=== PATIENT | female | born 1945 | race Caucasian/White ===

== ENCOUNTER 2023-02-24 09:50 | Outpatient (AMB) | payer MEDICARE, SELFPAY ==
--- NOTE | 2023-02-24 10:18 | MHC.OFFVIS ---
Intake Vital Signs 02/24/23 10:32 Height 5 ft 2.75 in Weight 148 lb BMI 26.4 BP 130/68 Blood Pressure Location Rt brachial Position Sitting Respiration 16 Pulse 81 Pulse Source Pulse Oximeter Pulse Oximetry (%) 94 Oxygen Delivery Method Room Air Intake Visit Reasons: Dorsalgia, unspecified Intake Note: patient comes in for initial visit was referred by pcp. Allergies Penicillins Adverse Reaction (Mild, Verified 02/24/23 10:23) Hives [facility] HPI Comments History of Present Illness Details Lorrie is very pleasant 77 years old female who presents in my office with complains on pain in the bilateral buttocks as well as pain radiation into bilateral groins. She reported that this condition started 2 years ago with severe pain in the right shoulder. Eventually her pain went widespread and now she is complaining on pain in the back and pain the right scapula. She reports that she is suffering from arthritis for 40 years. She consider her pain as a flare-up of the arthritis. She reports that she cannot sleep normally because of her pain cannot do activities of daily living she can take care of herself and she can not function normally. She is retired individual. She reports that movements aggravate her pain. The pain is most severe in the morning. She reports pain in terms of tissue damage is stabbing, lancinating, pinching, cramping, crushing, tugging, pulling, ranging sensation. She tried therapeutic walks to help her pain recommendations of prior primary care physician. She tried gabapentin which did not help her pain. She is negative about injections. She is visiting office of physical therapy Karthikeyan Estevez. She never had any images of the lumbar spine or joints. Her past medical history significant for fatigue, dizziness, arthritis. 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 She probably has degree of osteoporosis. Her past surgical history significant for rotator cuff surgery of the right and left shoulders in 2008 in 2010. She denies smoking cigarettes denies drinking alcohol denies drinking caffeinated beverages denies recreational drugs. Review of Systems Const Reports as per HPI ENT Reports Normal hearing present Card Reports no additional complaints Resp Reports no additional complaints GI Reports no additional complaints Reports no additional complaints Musc Reports as per HPI Neuro Reports no additional complaints, Reports Normal hearing present, Denies Abnormal speech present and Denies Sensory deficit (Neuro) Physical Exam Vital Signs: Last Vital Signs Pulse 81 09/18/23 10:32 Resp 16 02/24/23 10:32 BP 130/68 02/24/23 10:32 Pulse Ox 94 02/24/23 10:32 Oxygen Delivery Method Room Air 02/24/23 10:32 BMI result Body Mass Index 26.4 Const General: no acute distress, well developed, alert, awake and Physically active Orientation/consciousness: patient oriented x3 Eyes General: appearance normal, both eyes and all related structures Pupils: Equal, round and reactive pupils present EOM: EOMs intact bilaterally Neck Neck: Yes full ROM Chest Chest palpation & inspection: normal inspection of the chest Resp Effort & Inspection: normal respiratory effort, able to speak in complete sentences, normal respiratory pattern, no audible wheezes and no cough Cardio Jugular venous distension: no JVD GI Inspection: Yes normal to inspection Back/Spine/Pelvis Other: Negative Jose Miguel test on the right and positive Jose Miguel test on the left make me think about sacroiliitis on the left. However she also has groin discomfort with performance of the Jose Miguel test on the left. That might be evident of the hip arthritis. No tenderness on palpation in paraspinal spinal region of the lumbar spine. No pain aggravated by a spinal movements. Neuro General: patient oriented x3 and gait normal Cranial nerves: Yes CN's II-XII intact bilaterally, Yes Equal, round and reactive pupils present, Yes Normal hearing present and Yes Ability to bilaterally elevate shoulders present Speech: No Abnormal speech present Gait exam (Neuro): Normal gait present Motor exam (neuro): 5/5 motor strength present throughout Sensory Exam: No Sensory deficit (Neuro) Extrem General: No pedal edema Psych Speech and movement: Normal speech and movement present Affect: normal affect Attitude: cooperative Thought process: Normal thought process present Thought content: Normal thought content present Insight: Good insight present (Psych) Judgement: Good judgement present (Psych) Assessment & Plan Assessment & Plan (1) Rheumatoid arthritis: Code(s): M06.9 - Rheumatoid arthritis, unspecified (2) Gout, arthritis: Code(s): M10.9 - Gout, unspecified Plan This patient's pain is really mild today she reports pain today only 3/10. My impression is that her pain may be coming from osteoarthritis. I offered her x-ray of the hips and following by that diagnostic intra-articular hip injections however patient adamantly refused. She wants to prevent future flares up. I recommended her to be referred to a continuous crusher operator. I will make such in referral. Orders: Referrals Rheumatology Referral M06.9 - Rheumatoid arthritis, unspecified, M10.9 - Gout, unspecified Coding Level of Care Code New Pt Level 3 (47648) Diagnoses Rheumatoid arthritis M06.9 Gout, arthritis M10.9
[2023-02-24 10:32] VITALS: BP 130/68; PULSE 81; RESP 16; O2SAT 94; BMI 26.4
== END 2023-02-24 10:50 | disposition home or self-care (01) ==
PROVIDERS: PCP Family Medicine; Visit Provider Anesthesiology
DX: M06.9 Rheumatoid arthritis, unspecified (principal); M10.9 Gout, unspecified
CPT/HCPCS: 99203

== ENCOUNTER → 2023-02-24 09:50 | Outpatient (BNVA) | payer MEDICARE, SELFPAY | PROVIDERS: PCP Family Medicine; Visit Provider Anesthesiology ==

== ENCOUNTER 2023-05-22 10:31 | Outpatient (REF) | payer MEDICARE, SELFPAY ==
--- NOTE | ~2023-05-22 | XR_ITS ---
EXAMINATION: XR SACROILIAC JOINTS CLINICAL INFORMATION: Low back pain, unspecified COMPARISON: Same-day lumbar spine TECHNIQUE: 3 views of the sacroiliac joints FINDINGS: The bones are diffusely demineralized. No fracture. Alignment is anatomic. Sacroiliac joint spaces are well-maintained without erosions or surrounding sclerosis. Degenerative changes are seen in the lower lumbar spine. Calcification in the center the pelvis likely represents a calcified fibroid. XR/XR sacroiliac joint min 3V IMPRESSION: No bony abnormality of the sacroiliac joints.
--- NOTE | ~2023-05-22 | XR_ITS ---
EXAMINATION: XR LUMBOSACRAL SPINE WITH OBLIQUES CLINICAL INFORMATION: Low back pain COMPARISON: None available. TECHNIQUE: AP, both oblique, and lateral views of the lumbar spine. Lateral view of the lumbosacral junction. FINDINGS: Vertebral bodies are normally aligned. There is slight loss of vertebral body height of the T12-L1 L3-L4 likely reflecting compression fractures more likely chronic than acute. Multilevel degenerative disc changes manifest by endplate osteophytes throughout. There is some ossification of the anterior longitudinal ligament throughout the thoracolumbar junction L1-L2 and L3-L4 and L5-S1 levels. Facets unremarkable. The partially visualized pelvis including sacroiliac joints are normal. There is arterial calcification of the abdominal aorta. XR/XR lumbar spine 4V min IMPRESSION: 1. Multilevel degenerative changes of the lumbar spine. 2. Multiple compression fractures likely old 3. Calcification of the anterior longitudinal ligament which can be seen with DISH. 4. Calcific atherosclerotic disease.
[2023-05-22 12:23] LABS: MANUAL DIFF FLAG NO
[2023-05-22 12:47] LABS: Basophils Percent Auto 0.1 % (0-2); Eosinophils Absolute Auto 0.1 X10*3/uL (0.0-0.4); Eosinophils Percent Auto 1.2 % (0-4); Hematocrit 45.7 % (37.0-47.0); Hemoglobin 15.2 g/dl (12.0-16.0); Imm Gran Abs Auto 0.04 X10*3/uL (0.00-0.03); Imm Gran Pct Auto 0.5 % (0.0-0.4); Lymphocytes Absolute Auto 1.7 X10*3/uL (1.2-4.9); Lymphocytes Percent Auto 23.3 % (20-40); Mean Corpuscular HGB Conc 33.3 g/dl (31.0-35.0); Mean Corpuscular Hemoglobin 29.9 pg (27.0-33.0); Mean Corpuscular Volume 89.8 fL (80.0-98.0); Mean Platelet Volume 9.7 fL (9.4-12.3); Monocytes Absolute Auto 0.7 X10*3/uL (0.1-1.2); Neutrophils Absolute Auto 4.9 x10*3/uL (2.0-8.3); Neutrophils Percent Auto 65.9 % (45-73); Platelet Count 265 X10*3/uL (160-400); Red Blood Count 5.09 X10*6/uL (4.20-5.50); Red Cell Distribution Width 13.5 % (11.0-16.0); White Blood Count 7.4 X10*3/uL (4.8-10.8)
[2023-05-22 13:13] LABS: Alanine Aminotransferase 19 U/L (0-31); Albumin Level 4.5 g/dL (3.5-5.0); Alkaline Phosphatase 75 U/L (39-117); Anion Gap 15 (12-20); Aspartate Amino Transferase 25 U/L (5-31); Bilirubin Total 0.6 mg/dL (0.0-1.0); Blood Urea Nitrogen 14 mg/dL (9-16); Calcium 10.1 mg/dL (8.4-10.2); Carbon Dioxide 28 mmol/L (22-29); Chloride 101 mmol/L (96-108); Estimated Glomerular Filt Rate > 60; Glucose Random 89 mg/dL (60-115); Potassium 4.1 mmol/L (3.3-5.1); Sodium 140 mmol/L (135-145); Total Protein 7.6 g/dL (6.5-8.0)
[2023-05-22 13:28] LABS: Rheumatoid Factor < 13.0 IU/mL (<15.0)
[2023-05-22 13:44] LABS: Erythrocyte Sedimentation Rate 7 MM/HR (0-20)
[2023-05-23 07:33] LABS: HBS Num1 0.65 mIU/mL (0-7.99); HBc Num1 0.09 S/CO (0.00-0.79); HBsAGNum1 0.27 S/CO (0.00-0.99); Hepatitis A Antibody IgM 0.11 Index (0-0.79); Hepatitis B Core Antibody Nonreactive (Nonreactive); Hepatitis B Surface Antigen Negative (Negative); ~HepC Num1 0.08 S/CO (0.00-0.79); ~Hepatitis A Antibody IgM Nonreactive (Nonreactive); ~Hepatitis B Surface Antibody NONREACTIVE (Nonreactive); ~Hepatitis C Antibody Nonreactive (Nonreactive)
[2023-05-23 14:13] LABS: Cyclic Citrullinated Peptide <16 UNITS
[2023-05-23 21:29] LABS: Prot Elec - Albumin 4.4 g/dL (3.8-4.8); Prot Elec - Alpha1 0.4 g/dL (0.2-0.3); Prot Elec - Alpha2 0.8 g/dL (0.5-0.9); Prot Elec - Beta 1 0.5 g/dL (0.4-0.6); Prot Elec - Beta 2 0.4 g/dL (0.2-0.5); Prot Elec - Gamma 0.8 g/dL (0.8-1.7); Prot Elec - Total Protein 7.2 g/dL (6.1-8.1)
[2023-05-24 22:08] LABS: TS Negative Control Passed; TS Panel A 2; TS Panel B 1; TS Positive Control Passed; TSpotTB Negative (Negative)
[2023-05-25 18:54] LABS: HLA B27 Negative (Negative)
[2023-05-27 14:48] LABS: IgA 158 mg/dL (70-320); IgG 895 mg/dL (600-1540); IgM 51 mg/dL (50-300)
== END 2023-05-22 10:32 | disposition home or self-care (01) ==
LOC: HO.LAB 10:31
PROVIDERS: PCP Family Medicine; Visit Provider Student in an Organized Health Care Education/Training Program
DX: Z11.7 Encounter for testing for latent tuberculosis infection (principal); Z11.59 Encounter for screening for other viral diseases; K50.10 Crohn's disease of large intestine without complications; M45.9 Ankylosing spondylitis of unspecified sites in spine; M54.41 Lumbago with sciatica, right side; G89.29 Other chronic pain; Z72.89 Other problems related to lifestyle
CPT/HCPCS: 72110; 72202; 80053; 82784; 84165; 85025; 85652; 86021; 86036; 86140; 86200; 86334; 86431; 86481; 86671; 86704; 86706; 86709; 86803; 86812; 87340; 99202

== ENCOUNTER 2023-05-22 10:31 | Outpatient (AMB) | payer MEDICARE, SELFPAY ==
[2023-05-22 10:40] VITALS: BP 142/90; PULSE 80; TEMP 36.1; O2SAT 97
--- NOTE | 2023-05-22 10:40 | MHC.OFFVIS ---
Intake Vital Signs 05/22/23 10:40 BP 142/90 H Blood Pressure Location Rt brachial Position Sitting Pulse 80 Pulse Source Pulse Oximeter Temp 97 F Temp Source Skin Pulse Oximetry (%) 97 Oxygen Delivery Method Room Air Intake Visit Reasons: RA Intake Note: New patient presents today for RA. Referred to us by pain management. 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 c/o [place] upper buttoks pain radiating down to upper thighs since July. Atmospheric Drier Tender Required: No Accompanied by: Self / Same As Patient Allergies Penicillins Adverse Reaction (Mild, Verified 05/22/23 10:45) Hives Medication List - Last Reconciled 05/22/23 by Radha Lynch MD azelastine intranasal Bifidobacterium infantis (Align) 4 mg PO BEDTIME cholecalciferol (vitamin D3) 50 mcg PO DAILY melatonin 1 mg PO BEDTIME PRN multivitamin 1 tab PO DAILY simvastatin 40 mg PO BEDTIME trazodone mg PO HPI HPI Comments History of Present Illness Details This is a 78-year-old female who presents for evaluation low back pain. Patient stated that she has had this condition for a few years, but in July of 2022 she had a flare-up of severe low back pain that alternates right and left and intermittently radiates to her buttocks and upper thigh posteriorly. She could not move for a few days. She states that she has morning stiffness lasting 1 hour improved with stretching and using her elliptical. She denies any other swollen or painful joints. She denies any bowel symptoms. Denies any history suggestive of uveitis. She states that her daughter has Crohn's colitis. 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 She has been in remission since 1990. She also states that she has history of osteoporosis and received Fosamax for a few years. Mentions that she has had bilateral rotator cuff repair surgery about a decade ago. She denied any trauma or injury to the shoulders. She denies any fevers or weight loss. [facility] Medical History Osteoporosis Spinal stenosis Pemphigus Hyperlipidemia, unspecified Surgical History Hx of repair of rotator cuff Family History Mother Age related osteoporosis Arthritis Father Diabetes Daughter Acute Crohn's disease Social History Alcohol intake: never Patient Tobacco Use Status: Never used Tobacco Current occupational status: retired Female Reproductive History Menstrual Total pregnancies: 2 Review of Systems Const Reports fatigue, Reports weight gain and Denies weight loss Eyes Reports dry eyes Resp Reports cough Musc Reports back pain, Reports arthralgias and Reports radiating pain into limb Skin/Breast Denies rash Endo Reports fatigue Physical Exam Vital Signs: Last Vital Signs Temp 97 F 05/22/23 10:40 Pulse 80 05/22/23 10:40 BP 142/90 H 05/22/23 10:40 Pulse Ox 97 05/22/23 10:40 Oxygen Delivery Method Room Air 05/22/23 10:40 Const General: cooperative, healthy appearing and comfortable Orientation/consciousness: patient oriented x3 Limitations: no limitations HEENT Head: Yes normocephalic and Yes atraumatic Mouth: moist mucous membranes Resp Effort & Inspection: normal respiratory effort and able to speak in complete sentences Auscultation: clear to auscultation bilaterally Cardio Rate: regular rate GI Inspection: No distended Palpation (GI): Soft to palpation and nontender Skin General skin exam: no rashes or lesions noted Neuro General: patient oriented x3 Extrem Other: Osteoarthritic changes of both hands with no active synovitis No nail pitting Normal nailfold capillaroscopy Normal range of motion of hands, wrists, elbows, shoulders without pain Normal range of motion of her neck without pain Negative straight leg raise test bilaterally Negative Fabere test bilaterally Normal range of motion of both knees with no pain Bryan test 10-12 cm Results Reviewed Results Reviewed: Labs 03/2023? ESR 6 STEVEN by IFA negative Assessment & Plan Assessment & Plan (1) Low back pain, unspecified: Code(s): M54.50 - Low back pain, unspecified Qualifiers: Chronicity: chronic Back pain laterality: bilateral Sciatica presence: with sciatica Sciatica laterality: bilateral sciatica Qualified Code(s): M54.42 - Lumbago with sciatica, left side; M54.41 - Lumbago with sciatica, right side; G89.29 - Other chronic pain Plan: This is a 78-year-old female who presents for evaluation of bilateral lower back pain with intermittent radiculopathy symptoms. Symptoms more severe in the morning associated with 1 hour morning stiffness. She has a daughter with Crohn's colitis. Patient has some features of inflammatory back pain. Will order comprehensive serology to screen for underlying autoimmune rheumatic disease. Check L-spine and SI joint x-rays, to evaluate for sacroiliitis. If x-rays are nondiagnostic, I will order bilateral SI joint MRI to evaluate for sacroiliitis. Patient has no metal hardware. Plan I spent 48 minutes reviewing patient's chart, evaluating patient, ordering diagnostic workup, counseling patient and documenting in the chart Orders: Orders XR sacroiliac joint min 3V Today M54.50 - Low back pain, unspecified Complete Blood Count Auto Diff Today M25.50 - Pain in unspecified joint C Reactive Protein Today M25.50 - Pain in unspecified joint Protein Electrophoresis, Serum Today M25.50 - Pain in unspecified joint Immunofixation Pnl, Serum Today M25.50 - Pain in unspecified joint T Spot TB Today Z11.7 - Encounter for testing for latent tuberculosis infection Rheumatoid Factor Today M25.50 - Pain in unspecified joint XR lumbar spine 4V min Today M54.50 - Low back pain, unspecified Comprehensive Met. Panel Today M25.50 - Pain in unspecified joint Erythrocyte Sedimentation Rate Today M25.50 - Pain in unspecified joint Hepatitis A,B,C Profile Today Z11.59 - Encounter for screening for other viral diseases Cyclic Citrullinated Peptide Today M25.50 - Pain in unspecified joint HLA B27 Today M45.9 - Ankylosing spondylitis of unspecified sites in spine Other Ref Test - Misc Today K50.10 - Crohn's disease of large intestine without complications Coding Level of Care Code New Pt Level 4 (96289) Diagnoses Chronic bilateral low back pain with bilateral sciatica M54.42; M54.41; G89.29 Chronicity: chronic Back pain laterality: bilateral Sciatica presence: with sciatica Sciatica laterality: bilateral sciatica
== END 2023-05-22 11:35 | disposition home or self-care (01) ==
LOC: HO.RHE 10:31
PROVIDERS: PCP Family Medicine; Visit Provider Student in an Organized Health Care Education/Training Program
DX: M54.42 Lumbago with sciatica, left side (principal); M54.41 Lumbago with sciatica, right side; G89.29 Other chronic pain
CPT/HCPCS: 99204

== ENCOUNTER 2023-07-14 10:15 | Outpatient (REF) | payer MEDICARE, SELFPAY ==
--- NOTE | ~2023-07-14 | MR_ITS ---
EXAMINATION: MRI SACROILIAC JOINTS WITHOUT CONTRAST, BILATERAL CLINICAL INFORMATION: Lower back pain with left-sided sciatica. Morning stiffness. Evaluate for sacroiliitis. COMPARISON: Lumbar spine and sacroiliac joint radiographs dated 05/22/2023. TECHNIQUE: Multisequence MR imaging of the sacroiliac joints was obtained without contrast on a high-field strength scanner. FINDINGS: BONE: Mild bilateral sacroiliac joint space narrowing with small marginal osteophytes. No marrow edema, periarticular erosion, joint effusion, or adjacent inflammatory change to suggest acute sacroiliitis. No osseous bridging across the sacroiliac joints. No acute stress reaction or fracture. No concerning lytic or blastic osseous lesion. No femoral head avascular necrosis. Partially visualized degenerative disc disease and facet arthropathy within the lower lumbar spine with associated Schmorl's nodes. Degree of central canal or neural foraminal stenosis limited on MR examination; however, there does appear to be at least mild bilateral neural femoral stenosis at L3-L4 through L5-S1. MUSCLES/TENDONS: No edema or evidence of acute muscle or tendon injury. No measurable tear. INTRAPELVIC STRUCTURES: Unremarkable. SOFT TISSUES: No soft tissue mass or fluid collection. No mass or mass effect in the region of the neurovascular bundles. MR/MR sacroiliac joint TOBY wo con IMPRESSION: 1. Mild bilateral sacroiliac joint space narrowing with small marginal osteophytes. No marrow edema, particularly erosion, joint effusion, or adjacent fat change to suggest acute sacroiliitis. No osseous bridging across the sacroiliac joints. 2. Partially visualized degenerative disc disease and facet arthropathy within the lower lumbar spine with associated Schmorl's nodes. Degree of central canal or neural foraminal stenosis limited on MR examination; however, there does appear to be at least mild bilateral neural foraminal stenosis at L3-L4 through L5-S1.
== END 2023-07-14 10:16 | disposition home or self-care (01) ==
LOC: HO.MRI 10:15
PROVIDERS: PCP Family Medicine; Visit Provider Student in an Organized Health Care Education/Training Program
DX: M54.42 Lumbago with sciatica, left side (principal); M54.41 Lumbago with sciatica, right side; G89.29 Other chronic pain; M51.36 Other intervertebral disc degeneration, lumbar region; M47.816 Spondylosis without myelopathy or radiculopathy, lumbar region
CPT/HCPCS: 72195

== ENCOUNTER 2023-08-04 12:35 | Outpatient (AMB) | payer MEDICARE, SELFPAY ==
[2023-08-04 12:49] VITALS: BP 144/82; PULSE 88; TEMP 36.6; O2SAT 95; BMI 27.4
--- NOTE | 2023-08-04 12:49 | A.OFFVIS_ITS ---
Intake Vital Signs 08/04/23 12:49 Height 5 ft 2.75 in Weight 153 lb 10.595 oz BMI 27.4 BP 144/82 H Blood Pressure Location Rt brachial Position Sitting Pulse 88 Pulse Source Pulse Oximeter Temp 97.9 F Temp Source Skin Pulse Oximetry (%) 95 Oxygen Delivery Method Room Air Intake Visit Reasons: Sacroilitis Intake Note: Patient last seen 05/22/23 presents today for follow up and test results. Doughnut Icer Machine Required: No Accompanied by: Self / Same As Patient Allergies Penicillins Adverse Reaction (Mild, Verified 08/04/23 12:51) Hives Medication List - Last Reconciled 08/04/23 by Radha Lynch MD azelastine intranasal Bifidobacterium infantis (Align) 4 mg PO BEDTIME cholecalciferol (vitamin D3) 50 mcg PO DAILY melatonin 1 mg PO BEDTIME PRN multivitamin 1 tab PO DAILY simvastatin 40 mg PO BEDTIME trazodone mg PO HPI HPI Comments History of Present Illness Details Patient returns for follow-up after completion of her diagnostic workup. She continues to be about the same. She states that she gets back pain with little activity. She takes Tylenol Arthritis once a day. She uses Salonpas patches. She stated that physical therapy has helped her in the past but she does have a very high co-pay. When she was evaluated by pain management in the past, her pain level was only 3/10 and no significant intervention was suggested at that time Initial history: This is a 78-year-old female who presents for evaluation low back pain. Patient stated that she has had this condition for a few years, but in July of 2022 she had a flare-up of severe low back pain that alternates right and left and intermittently radiates to her buttocks and upper thigh posteriorly. She could not move for a few days. She states that she has morning stiffness lasting 1 hour improved with stretching and using her elliptical. She denies any other swollen or painful joints. She denies any bowel symptoms. Denies any history suggestive of uveitis. She states that her daughter has Crohn's colitis. 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 She has been in remission since 1990. She also states that she has history of osteoporosis and received Fosamax for a few years. Mentions that she has had bilateral rotator cuff repair surgery about a decade ago. She denied any trauma or injury to the shoulders. She denies any fevers or weight loss. [facility] Medical History Osteoporosis Spinal stenosis Pemphigus Hyperlipidemia, unspecified Surgical History Hx of repair of rotator cuff Family History Mother Age related osteoporosis Arthritis Father Diabetes Daughter Acute Crohn's disease Social History Alcohol intake: never Patient Tobacco Use Status: Never used Tobacco Current occupational status: retired Review of Systems [place] Reports back pain, Reports arthralgias and Reports radiating pain into limb Physical Exam Vital Signs: Last Vital Signs Temp 97.9 F 08/04/23 12:49 Pulse 88 08/04/23 12:49 BP 144/82 H 08/04/23 12:49 Pulse Ox 95 08/04/23 12:49 Oxygen Delivery Method Room Air 08/04/23 12:49 BMI result Body Mass Index 27.4 Const General: cooperative, healthy appearing and comfortable Limitations: no limitations HEENT Head: Yes normocephalic and Yes atraumatic Mouth: moist mucous membranes Resp Effort & Inspection: normal respiratory effort and able to speak in complete sentences Extrem Other: Osteoarthritic changes of both hands with no active synovitis No nail pitting Normal nailfold capillaroscopy Normal range of motion of hands, wrists, elbows, shoulders without pain Normal range of motion of her neck without pain Negative straight leg raise test bilaterally Negative Fabere test bilaterally Normal range of motion of both knees with no pain Bryan test 10-12 cm Assessment & Plan Assessment & Plan (1) Low back pain, unspecified: Code(s): M54.50 - Low back pain, unspecified Qualifiers: Chronicity: chronic Back pain laterality: bilateral Sciatica presence: with sciatica Sciatica laterality: bilateral sciatica Qualified Code(s): M54.42 - Lumbago with sciatica, left side; M54.41 - Lumbago with sciatica, right side; G89.29 - Other chronic pain Plan: This is a 78-year-old female who presents for evaluation of bilateral lower back pain with intermittent radiculopathy symptoms. Symptoms more severe in the morning associated with 1 hour morning stiffness. She has a daughter with Crohn's colitis. SI joints MRIs show no signs of sacroiliitis but there are some signs of degenerative arthritis. She does not have any signs of inflammatory arthritis. Blood work and serologies unremarkable. Patient takes 1 Tylenol Arthritis tablet daily. Advised patient to take up to 4 tablets daily. Continue with Salonpas patches. Patient states that she has a very high co-pay for physical therapy. She states that her pain is worse than when she was initially evaluated by Pain Management. I suggested re-evaluation by Pain Management at this point. Plan I spent 18 minutes reviewing patient's chart, evaluating patient, counseling patient and documenting in the chart Coding Level of Care Code Est Pt Level 3 (40495) Diagnoses Chronic bilateral low back pain with bilateral sciatica M54.42; M54.41; G89.29 Chronicity: chronic Back pain laterality: bilateral Sciatica presence: with sciatica Sciatica laterality: bilateral sciatica
== END 2023-08-04 13:11 | disposition home or self-care (01) ==
PROVIDERS: PCP Family Medicine; Visit Provider Student in an Organized Health Care Education/Training Program
DX: M54.42 Lumbago with sciatica, left side (principal); M54.41 Lumbago with sciatica, right side; G89.29 Other chronic pain
CPT/HCPCS: 99213

== ENCOUNTER → 2023-08-04 12:35 | Outpatient (BNVA) | payer MEDICARE, SELFPAY | PROVIDERS: PCP Family Medicine; Visit Provider Student in an Organized Health Care Education/Training Program | DX: M54.42 Lumbago with sciatica, left side (principal); M54.41 Lumbago with sciatica, right side; G89.29 Other chronic pain | CPT/HCPCS: 99212 ==

== ENCOUNTER 2023-08-14 12:53 | Outpatient (AMB) | payer MEDICARE, SELFPAY ==
--- NOTE | 2023-08-14 12:55 | MHC.OFFVIS ---
Intake Vital Signs 08/14/23 15:26 Height 5 ft 2.75 in Weight 153 lb BMI 27.3 BP 134/80 Blood Pressure Location Lt brachial Position Sitting Respiration 14 Pulse 90 Pulse Source Pulse Oximeter Pulse Oximetry (%) 97 Oxygen Delivery Method Room Air Intake Visit Reasons: Follow up to discuss cortisone shot. Intake Note: Patient comes in to discuss options. Reports pain 6/10. Allergies Penicillins Adverse Reaction (Mild, Verified 08/14/23 15:26) Hives HPI HPI Comments History of Present Illness Details Lorrie is back in my office with continuous complains on pain in bilateral buttocks radiating into upper bilateral hips and into bilateral loins. Last time she left my office I was under impression that her pain is coming mostly from the hip joints. Now after brief physical examination I think that most of her pain is from the left sacroiliac joint. I offered her to perform bilateral sacroiliac joint injection diagnostic. After that we can discuss further treatment depending on the results of the diagnostic injection. I will schedule her for this procedure without sedation. Prior: complains on pain in the bilateral buttocks as well as pain radiation into bilateral groins. She reported that this condition started 2 years ago with severe pain in the right shoulder. Eventually her pain went widespread and now she is complaining on pain in the back and pain the right scapula. She reports that she is suffering from arthritis for 40 years. She consider her pain as a flare-up of the arthritis. She reports that she cannot sleep normally because of her pain cannot do activities of daily living she can take care of herself and she can not function normally. She is retired individual. She reports that movements aggravate her pain. The pain is most severe in the morning. She reports pain in terms of tissue damage is stabbing, lancinating, pinching, cramping, crushing, tugging, pulling, ranging sensation. She tried therapeutic walks to help her pain recommendations of prior primary care physician. She tried gabapentin which did not help her pain. She is negative about injections. She is visiting office of physical therapy Karthikeyan Estevez. She never had any images of the lumbar spine or joints. Her past medical history significant for fatigue, dizziness, arthritis. 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 She probably has degree of osteoporosis. Her past surgical history significant for rotator cuff surgery of the right and left shoulders in 2008 in 2010. She denies smoking cigarettes denies drinking alcohol denies drinking caffeinated beverages denies recreational drugs. [facility] Medical History Osteoporosis Spinal stenosis Pemphigus Hyperlipidemia, unspecified Surgical History Hx of repair of rotator cuff Family History Mother Age related osteoporosis Arthritis Father Diabetes Daughter Acute Crohn's disease Social History Alcohol intake: never Patient Tobacco Use Status: Never used Tobacco Current occupational status: retired Review of Systems Const All systems reviewed & are unremarkable except as noted in HPI and below ENT Reports Normal hearing present Neuro Reports Normal hearing present, Denies Abnormal speech present and Denies Sensory deficit (Neuro) Physical Exam Vital Signs: Last Vital Signs Pulse 90 08/14/23 15:26 Resp 14 08/14/23 15:26 BP 134/80 08/14/23 15:26 Pulse Ox 97 08/14/23 15:26 Oxygen Delivery Method Room Air 08/14/23 15:26 BMI result Body Mass Index 27.3 Const General: no acute distress, well developed, alert, awake and Physically active Orientation/consciousness: patient oriented x3 Eyes General: appearance normal, both eyes and all related structures Pupils: Equal, round and reactive pupils present EOM: EOMs intact bilaterally Neck Neck: Yes full ROM Chest Chest palpation & inspection: normal inspection of the chest Resp Effort & Inspection: normal respiratory effort, able to speak in complete sentences, normal respiratory pattern, no audible wheezes and no cough Cardio Jugular venous distension: no JVD GI Inspection: Yes normal to inspection Back/Spine/Pelvis Other: Negative Jose Miguel test on the right and positive Jose Miguel test on the left make me think about sacroiliitis on the left. she denies pain in the groin with lateral rotation of the left or right hip. No tenderness on palpation in paraspinal spinal region of the lumbar spine. No pain aggravated by a spinal movements. Neuro General: patient oriented x3 and gait normal Cranial nerves: Yes CN's II-XII intact bilaterally, Yes Equal, round and reactive pupils present, Yes Normal hearing present and Yes Ability to bilaterally elevate shoulders present Speech: No Abnormal speech present Gait exam (Neuro): Normal gait present Motor exam (neuro): 5/5 motor strength present throughout Sensory Exam: No Sensory deficit (Neuro) Extrem General: No pedal edema Psych Speech and movement: Normal speech and movement present Affect: normal affect Attitude: cooperative Thought process: Normal thought process present Thought content: Normal thought content present Insight: Good insight present (Psych) Judgement: Good judgement present (Psych) Results Reviewed Results Reviewed: MRI of the pelvis demonstrated arthritis of the sacroiliac joints. Assessment & Plan Assessment & Plan (1) Rheumatoid arthritis: Code(s): M06.9 - Rheumatoid arthritis, unspecified (2) Gout, arthritis: Code(s): M10.9 - Gout, unspecified (3) Sacroiliitis: Code(s): M46.1 - Sacroiliitis, not elsewhere classified (4) Sacroiliac joint pain: Code(s): M53.3 - Sacrococcygeal disorders, not elsewhere classified Plan To put to rest the issue of her sacroiliac joint condition I would like to perform diagnostic sacroiliac joint injection bilateral. If she will feel good pain relief from this procedure we can follow-up with more definitive treatment. If not we can try medial branch blocks bilateral also diagnostic. Patient Instructions: I here by testify that I spent 33 minutes in conversation with this patient as well as planning her care and organizing this note. Coding Level of Care Code Est Pt Level 4 (33011) Diagnoses Rheumatoid arthritis M06.9 Gout, arthritis M10.9 Sacroiliitis M46.1 Sacroiliac joint pain M53.3
[2023-08-14 15:26] VITALS: BP 134/80; PULSE 90; RESP 14; O2SAT 97; BMI 27.3
== END 2023-08-14 13:17 | disposition home or self-care (01) ==
PROVIDERS: PCP Family Medicine; Visit Provider Anesthesiology
DX: M06.9 Rheumatoid arthritis, unspecified (principal); M10.9 Gout, unspecified; M46.1 Sacroiliitis, not elsewhere classified; M53.3 Sacrococcygeal disorders, not elsewhere classified
CPT/HCPCS: 99214

== ENCOUNTER → 2023-08-14 12:53 | Outpatient (BNVA) | payer MEDICARE, SELFPAY | PROVIDERS: PCP Family Medicine; Visit Provider Anesthesiology | DX: M06.9 Rheumatoid arthritis, unspecified (principal); M10.9 Gout, unspecified; M46.1 Sacroiliitis, not elsewhere classified; M53.3 Sacrococcygeal disorders, not elsewhere classified | CPT/HCPCS: 99212 ==

== ENCOUNTER 2023-09-23 06:10 | Outpatient (REF) | payer MEDICARE, SELFPAY ==
--- NOTE | ~2023-09-23 | FL_ITS ---
EXAMINATION: XR FLUOROSCOPY WITH IMAGES CLINICAL INFORMATION: Sacrococcygeal disorders, not elsewhere classified. COMPARISON: Sacroiliac joint radiographs dated 05/28/2023. TECHNIQUE: Fluoroscopy Supervised By: Dr. Kirk Baptiste. Fluoroscopy Time: 0.2 minutes. Cumulative Dose: 5.80 mGy. DAP: 1.34 Gycm2. Images: 2. FINDINGS: The submitted images show an injection needle and contrast in the vicinity of the left sacroiliac joint. FL/FL guidance in treatment room IMPRESSION: Intraoperative fluoroscopic guidance is provided during left sacroiliac joint pain management procedure. Please see the patient's Operative Report for full procedural details.
== END 2023-09-23 06:11 | disposition home or self-care (01) ==
LOC: CF 06:10
PROVIDERS: Visit Provider Anesthesiology
DX: M53.3 Sacrococcygeal disorders, not elsewhere classified (principal); M46.1 Sacroiliitis, not elsewhere classified
CPT/HCPCS: 27096; J2795; Q9967

== ENCOUNTER 2023-09-23 14:30 | Outpatient (AMB) | payer MEDICARE, SELFPAY ==
--- NOTE | 2023-09-23 15:13 | MHC.OFFVIS ---
Intake Intake Visit Reasons: LEFT DIAGNOSTIC SIJ INJECTION Allergies Penicillins Adverse Reaction (Mild, Verified 08/14/23 15:26) Hives PFSH Medical History Osteoporosis Spinal stenosis Pemphigus Hyperlipidemia, unspecified Surgical History Hx of repair of rotator cuff Family History Mother Age related osteoporosis Arthritis Father Diabetes Daughter Acute Crohn's disease Social History Alcohol intake: never Patient Tobacco Use Status: Never used Tobacco Current occupational status: retired Assessment & Plan Assessment & Plan (1) Sacroiliac joint pain: Code(s): M53.3 - Sacrococcygeal disorders, not elsewhere classified (2) Sacroiliitis: Code(s): M46.1 - Sacroiliitis, not elsewhere classified Plan ?Left diagnostic sacroiliac joint injection Informed consent was explained thoroughly to the patient.? All questions about benefits and risks for the procedure were answered. Patient came to the operating room and was positioned prone on the operating table with the pillow under her pelvis. ?[employer] monitors were applied and patient was sedated. ? Time out was performed delineating name and of the patient, site and side of the procedure, nature of the procedure and potential patient?s risks. The lower back of the patient and upper buttocks was prepped with ChloraPrep prepped and draped with sterile utility drapes.? C-arm was brought over the operating field and square picture of patient's pelvis was demonstrated on the screen.? For the left joint tilting C-arm contralateral to the site of the joint the posterior joint silhouette was delineated on the screen. Skin projection of the joint was chosen as a target of the injection and it was injected ?slightly medial to the location of the joint with 25 gauge needle using local lidocaine 2% without epinephrine. After that 22 gauge 3 and 1/2 inch needle was driven to the joint silhouette in tunnel vision fashion.? When needle entered the joint capsule injection of the contrast was performed demonstrating intra-articular spread of the contrast.? After that 4 cc. of ropivacaine 0.5% was injected into the joint. Upon completion of the injections the needle was removed and sterile dressing was applied.? Upon completion of the injection patient was awaken taken outside of the operating room to the recovery room where recovered uneventfully.? Orders: Orders FL guidance in treatment room 09/23/23 M53.3 - Sacrococcygeal disorders, not elsewhere classified Coding Level of Care Code Procedure Only Diagnoses Sacroiliac joint pain M53.3 Sacroiliitis M46.1
== END 2023-09-23 15:10 | disposition home or self-care (01) ==
LOC: HO.PMCPRC 14:30
PROVIDERS: PCP Family Medicine; Visit Provider Anesthesiology
DX: M53.3 Sacrococcygeal disorders, not elsewhere classified (principal); M46.1 Sacroiliitis, not elsewhere classified
CPT/HCPCS: 27096

== ENCOUNTER 2023-09-25 08:48 | Outpatient (AMB) | payer MEDICARE, SELFPAY ==
--- NOTE | 2023-09-25 08:58 | A.OFFVIS_ITS ---
Intake Vital Signs 09/25/23 09:07 Height 5 ft 2.75 in Weight 153 lb BMI 27.3 BP 142/60 H Blood Pressure Location Lt brachial Position Sitting Respiration 16 Pulse 100 Pulse Source Pulse Oximeter Pulse Oximetry (%) 95 Oxygen Delivery Method Room Air Intake Visit Reasons: LEFT DIAGNOSTIC SIJ INJECTION Intake Note: Patient comes in for post-op appointment. Reports pain 1/10. Allergies Penicillins Adverse Reaction (Mild, Verified 08/14/23 15:26) Hives HPI HPI Comments History of Present Illness Details Lorrie is in my office after diagnostic right sacroiliac joint injection. She reported unusual response to the injection. She reported that she had before the procedure pain 5/10. 1 hour of the procedure she still had pain 5/10. But starting from that point the pain on the left started to go down and by the 5 hours after the procedure she reported pain 1/10. She still experiences significant pain relief is still 1/10. She stated that her pain on the right is 5/10 today. She would like to consider therapeutic SI joint injection. She is explained about side effects of the steroids. She reported that for long period of time she was treated big doses of the steroids to treat pemphigus vulgaris. I will schedule her for bilateral therapeutic SI joint injection. I will see her after the injection to assess the results of the procedure. Prior: complains on pain in the bilateral buttocks as well as pain radiation into bilateral groins. She reported that this condition started 2 years ago with severe pain in the right shoulder. Eventually her pain went widespread and now she is complaining on pain in the back and pain the right scapula. She reports that she is suffering from arthritis for 40 years. She consider her pain as a flare-up of the arthritis. She tried gabapentin which did not help her pain. She is negative about injections. She is visiting office of physical therapy Karthikeyan Estevez. She never had any images of the lumbar spine or joints. COUNT INCLUDES [facility] Medical History Osteoporosis Spinal stenosis Pemphigus Hyperlipidemia, unspecified Surgical History Hx of repair of rotator cuff Family History Mother Age related osteoporosis Arthritis Father Diabetes Daughter Acute Crohn's disease Social History Alcohol intake: never Patient Tobacco Use Status: Never used Tobacco Current occupational status: retired Review of Systems Const All systems reviewed & are unremarkable except as noted in HPI and below ENT Reports Normal hearing present Neuro Reports Normal hearing present, Denies Abnormal speech present and Denies Sensory deficit (Neuro) Physical Exam Vital Signs: Last Vital Signs Pulse 100 09/25/23 09:07 Resp 16 09/25/23 09:07 BP 142/60 H 09/25/23 09:07 Pulse Ox 95 09/25/23 09:07 Oxygen Delivery Method Room Air 09/25/23 09:07 BMI result Body Mass Index 27.3 Const General: no acute distress, well developed, alert, awake and Physically active Orientation/consciousness: patient oriented x3 Eyes General: appearance normal, both eyes and all related structures Pupils: Equal, round and reactive pupils present EOM: EOMs intact bilaterally Neck Neck: Yes full ROM Chest Chest palpation & inspection: normal inspection of the chest Resp Effort & Inspection: normal respiratory effort, able to speak in complete sentences, normal respiratory pattern, no audible wheezes and no cough Cardio Jugular venous distension: no JVD GI Inspection: Yes normal to inspection Back/Spine/Pelvis Other: Negative Jose Miguel test on the right and positive Jose Miguel test on the left make me think about sacroiliitis on the left. she denies pain in the groin with lateral rotation of the left or right hip. No tenderness on palpation in paraspinal spinal region of the lumbar spine. No pain aggravated by a spinal movements. Neuro General: patient oriented x3 and gait normal Cranial nerves: Yes CN's II-XII intact bilaterally, Yes Equal, round and reactive pupils present, Yes Normal hearing present and Yes Ability to bilaterally elevate shoulders present Speech: No Abnormal speech present Gait exam (Neuro): Normal gait present Motor exam (neuro): 5/5 motor strength present throughout Sensory Exam: No Sensory deficit (Neuro) Extrem General: No pedal edema Psych Speech and movement: Normal speech and movement present Affect: normal affect Attitude: cooperative Thought process: Normal thought process present Thought content: Normal thought content present Insight: Good insight present (Psych) Judgement: Good judgement present (Psych) Assessment & Plan Assessment & Plan (1) Rheumatoid arthritis: Code(s): M06.9 - Rheumatoid arthritis, unspecified (2) Gout, arthritis: Code(s): M10.9 - Gout, unspecified (3) Sacroiliitis: Code(s): M46.1 - Sacroiliitis, not elsewhere classified (4) Sacroiliac joint pain: Code(s): M53.3 - Sacrococcygeal disorders, not elsewhere classified Plan We decided that I will schedule her for bilateral therapeutic sacroiliac joint injection. That most likely her pain generator. However if this will not help her pain into desired level I probably should schedule her for the some diagnostic imaging studies. Patient Instructions: I here by testify that I spent 32 minutes in conversation with this patient as well as planning her care and organizing this note. Coding Level of Care Code Est Pt Level 4 (71951) Diagnoses Rheumatoid arthritis M06.9 Gout, arthritis M10.9 Sacroiliitis M46.1 Sacroiliac joint pain M53.3
[2023-09-25 09:07] VITALS: BP 142/60; PULSE 100; RESP 16; O2SAT 95; BMI 27.3
== END 2023-09-25 09:24 | disposition home or self-care (01) ==
PROVIDERS: PCP Family Medicine; Visit Provider Anesthesiology
DX: M06.9 Rheumatoid arthritis, unspecified (principal); M10.9 Gout, unspecified; M46.1 Sacroiliitis, not elsewhere classified; M53.3 Sacrococcygeal disorders, not elsewhere classified
CPT/HCPCS: 99214

== ENCOUNTER → 2023-09-25 08:48 | Outpatient (BNVA) | payer MEDICARE, SELFPAY | PROVIDERS: PCP Family Medicine; Visit Provider Anesthesiology | DX: M53.3 Sacrococcygeal disorders, not elsewhere classified (principal); M46.1 Sacroiliitis, not elsewhere classified; M06.9 Rheumatoid arthritis, unspecified; M10.9 Gout, unspecified; M81.0 Age-related osteoporosis without current pathological fracture; L10.0 Pemphigus vulgaris | CPT/HCPCS: 99212 ==

== ENCOUNTER 2023-10-31 08:30 | Day surgery (SDC) | payer MEDICARE, SELFPAY ==
--- NOTE | 2023-10-29 15:32 | HO.ANESPROP2 ---
Documented by User: Catarina Michel NP 10/29/23 15:32 HPI - Anesthesia Eval Consult details Narrative: 78yo F for Bilateral Therapeutic Sacroiliac Joint Steroid Injection PMFSH Active Problems Active Problems: All Active Problems Sacroiliac joint pain (Acute) Sacroiliitis (Acute) Low back pain, unspecified (Acute) Past Medical History Medical History (Updated 08/14/23 @ 13:36 by Kirk Baptiste MD) Osteoporosis Spinal stenosis Pemphigus Hyperlipidemia, unspecified Family History Family History Mother Age related osteoporosis Arthritis Father Diabetes Daughter Acute Crohn's disease Surgical History Surgical History (Updated 10/31/23 @ 08:37 by Delia Bass) History of foot surgery Hx of repair of rotator cuff Social History Social History Alcohol intake: never Patient Tobacco Use Status: Never used Tobacco Use of substances other than those prescribed or required for medical reasons: No Are you DNR?: No Advance Directives: No Advance Directives Information Provided: Yes Current occupational status: retired Meds Allergies Allergy/AdvReac Type Severity Reaction Status Date / Time Penicillins AdvReac Mild Hives Verified 10/31/23 08:37 Home Medications ?Medication ?Instructions ?Recorded ?Confirmed ?Last Taken ?Type cholecalciferol (vitamin D3) 50 50 mcg PO DAILY 02/24/23 10/31/23 Unknown History mcg (2,000 unit) capsule melatonin 1 mg tablet 0.5 mg PO BEDTIME PRN Sleep 02/24/23 10/31/23 Unknown History multivitamin 1 tab PO DAILY 02/24/23 10/31/23 Unknown History simvastatin 40 mg tablet 40 mg PO BEDTIME 02/24/23 10/31/23 Unknown History trazodone 50 mg tablet 50 mg PO DAILY 02/24/23 10/31/23 Unknown History Bifidobacterium infantis 4 mg 4 mg PO BEDTIME 05/22/23 10/31/23 Unknown History capsule (Align) azelastine 137 mcg (0.1 %) nasal 2 spray intranasal DAILY 05/22/23 10/31/23 Unknown History spray aerosol Assessment and Plan Assessment Anesthesia Assessment: Chart Reviewed Documented by User: Pablo Rivero MD 10/31/23 11:07 [facility] Past Medical History Medical History (Updated 08/14/23 @ 13:36 by Kirk Baptiste MD) Osteoporosis Spinal stenosis Pemphigus Hyperlipidemia, unspecified Family History Family History Mother Age related osteoporosis Arthritis Father Diabetes Daughter Acute Crohn's disease Family history of problems with anesthesia: No Surgical History Surgical History (Updated 10/31/23 @ 08:37 by Delia Bass) History of foot surgery Hx of repair of rotator cuff History of Problems with Anesthesia: No Social History Social History Alcohol intake: never Patient Tobacco Use Status: Never used Tobacco Use of substances other than those prescribed or required for medical reasons: No Are you DNR?: No Advance Directives: No Advance Directives Information Provided: Yes Current occupational status: retired Meds Allergies Allergy/AdvReac Type Severity Reaction Status Date / Time Penicillins AdvReac Mild Hives Verified 10/31/23 08:37 Home Medications ?Medication ?Instructions ?Recorded ?Confirmed ?Last Taken ?Type cholecalciferol (vitamin D3) 50 50 mcg PO DAILY 02/24/23 10/31/23 Unknown History mcg (2,000 unit) capsule melatonin 1 mg tablet 0.5 mg PO BEDTIME PRN Sleep 02/24/23 10/31/23 Unknown History multivitamin 1 tab PO DAILY 02/24/23 10/31/23 Unknown History simvastatin 40 mg tablet 40 mg PO BEDTIME 02/24/23 10/31/23 Unknown History trazodone 50 mg tablet 50 mg PO DAILY 02/24/23 10/31/23 Unknown History Bifidobacterium infantis 4 mg 4 mg PO BEDTIME 05/22/23 10/31/23 Unknown History capsule (Align) azelastine 137 mcg (0.1 %) nasal 2 spray intranasal DAILY 05/22/23 10/31/23 Unknown History spray aerosol Exam Airway Mallampati Class: II TM Dist: <=3cm Neck ROM: Full Loose/Missing/Broken Teeth: No Heart: ok Lungs: ok Assessment and Plan Assessment Anesthesia Assessment: Anesthesia Plan Discussed Final Anesthetic Review Family History of Problems with Anesthesia: No History of Problems with Anesthesia: No NPO: Yes ASA Class: III Final Preanesthetic Review: No Changes in Pt Med Stat, Meds/Allgs Chart Reviewed, Consent Obtained/Reviewed and Anes Risks/Benef Reviewed Patient Risk: Intermediate Procedure Risk: Intermediate Anesthetic Plan Anesthetic Plan: GA and Agree w/ Assess. and Plan Disposition: Standard PACU
--- NOTE | ~2023-10-31 | FL_ITS ---
EXAMINATION: XR FLUOROSCOPY WITH IMAGES CLINICAL INFORMATION: Therapeutic SI joint injection. COMPARISON: None available. TECHNIQUE: Fluoroscopy Supervised By: Dr. Kirk Baptiste. Fluoroscopy Time: 0.2 minutes. Cumulative Dose: 3.78 mGy. DAP: 1.03 Gy-cm2. Images: 4. FINDINGS: Intraoperative fluoroscopy and spot films were performed during a procedure in the OR. [place] are seen overlying both the right and left SI joints with contrast injected seen around the joint. Please see Dr. Kirk Baptiste's report for complete details. FL/FL guidance in OR IMPRESSION: Intraoperative fluoroscopy and spot films were obtained. Please see Dr. Kirk Baptiste's report for complete details.
[2023-10-31 09:05] VITALS: BMI 27.6
[2023-10-31 09:11] VITALS: BP 167/97; PULSE 67; RESP 16; TEMP 36.9; O2SAT 96
[2023-10-31] MEDS: Lactated Ringers 1,000 ML 100 ML IVCONT (10:04)
--- NOTE | 2023-10-31 10:29 | P.HPSUR_ITS ---
Pre-Procedural Eval Section A - 24 Hr Update-Section A only Date of Service: 10/31/23 The patient is an INPATIENT: No Changes since office visit: Yes Patient answered all questions The patient has been examined within 24 hours of the surgical procedure. The History & Physical has been completed within 30 days and I have reviewed it.: No Section B - Complete if H&P > 30 days Chief Complaint: Sacrococcygeal disorders,sacroiliitis Details of Present Illness: As above Relevant Family History (Specify if Yes): No Relevant Social History: None Present Medications: None Medical History: No relevant PMH History of Previous Operations: No relevant previous surgery Allergies: Allergies Allergy/AdvReac Type Severity Reaction Status Date / Time Penicillins AdvReac Mild Hives Verified 10/31/23 08:37 Review of Systems Sugical H&P ROS: Negative: Constitution, Cardiovascular, Respiratory, Neurological, Psychiatric, Hem-Onc, Allergic/Immunologic, Gastrointestinal, Gen itourinary, Musculoskeletal, Integumentary, Endocrine and Eyes/Ears/Nose/Throat Exam Surgical H&P Exam: Normal: HEENT, Normal: Heart, Normal: Lungs, Normal: Extremities, Normal: Abdomen, Normal: Skin and Normal: Neurological Plan Diagnosis/Plan: Unchanged I have reviewed the history and physical and performed a pertinent physical examination on my patient. No changes have occurred unless specified. Time Spent With Patient Time: Total time managing care of this patient today ____ minutes.
--- NOTE | 2023-10-31 11:04 | P.BOP_ITS ---
Brief Operative Note Date of Service: 10/31/23 Pre-op diagnosis: Sacroiliitis bilateral SI joint pain Post-op diagnosis: same Procedure: Bilateral sacroiliac joint injection Implants: None Surgeon: Kirk Baptiste MD Anesthesia: MAC Was an Health Record Technician used for this Procedure?: No Estimated blood loss (mL): 0 Condition: stable Disposition: PACU
[2023-10-31 11:05] VITALS: BP 134/86; PULSE 88; RESP 18; TEMP 36.3; O2SAT 95
--- NOTE | 2023-10-31 11:07 | W.PM.OPN ---
Operative Note Operative Note Date of Service: 10/31/23 Narrative: Bilateral therapeutic sacroiliac joint injection. Informed consent was explained thoroughly to the patient. All questions about benefits and risks for the procedure were answered. Patient came to the operating room and was positioned prone on the operating table with the pillow under the pelvis. ASA monitors were applied and the patient was moderately sedated. Time out was performed delineating name and of the patient, allergies and the nature of the procedure. The lower back and buttocks of the patient were prepped with ChloraPrep prepped and draped with sterile utility towels. C-arm was brought over the operating field and sq picture of patient's pelvis was demonstrated on the screen. For the right joint tilting C-arm contralateral to the site of the joint the most posterior portion of the joints was superimposed with anterior silhouette of the joint. Skin was injected in the projection of the joint slightly medial to the location of the joint with 25 gauge 1/2 inch needle using local lidocaine 2% .After that 22 gauge 3 and 1/2 inch needle was driven to the right joint in tunnel vision fashion. When needle entered the joint capsule injection of the contrast was performed demonstrating intra-articular and minimally periarticular spread of the contrast. After that 4 cc. of ropivacaine 0.5% mixed with Kenalog 40 mg was injected into the joint. After that attention was concentrated on the left side where the injections was performed on the left sacroiliac joint in mirroring fashion. Upon completion of the injections the needle was removed Sterile dressing was applied. Upon completion of the injection patient was taken outside of the operating room to the recovery room where she recovered uneventfully
[2023-10-31 11:20] VITALS: BP 139/80; PULSE 95; RESP 16; O2SAT 95
[2023-10-31 11:34] VITALS: BP 156/89; PULSE 64; RESP 16; TEMP 36.1; O2SAT 97
== END 2023-10-31 12:38 | disposition home or self-care (01) ==
PROVIDERS: PCP Family Medicine; Visit Provider Anesthesiology
PROC: 3E0U33Z Introduction of Anti-inflammatory into Joints, Percutaneous Approach (ICD-10-PCS; CPT 27096; principal; 2023-10-31 10:30)
DX: M53.3 Sacrococcygeal disorders, not elsewhere classified (principal); M46.1 Sacroiliitis, not elsewhere classified; M06.9 Rheumatoid arthritis, unspecified; M10.9 Gout, unspecified
CPT/HCPCS: 64451; J2250; J2704; J2795; J3010; J3301; Q9967

== ENCOUNTER → 2023-10-31 08:30 | Outpatient (BNV) | payer MEDICARE, SELFPAY | PROVIDERS: PCP Family Medicine; Visit Provider Anesthesiology | DX: M46.1 Sacroiliitis, not elsewhere classified (principal); M53.3 Sacrococcygeal disorders, not elsewhere classified | CPT/HCPCS: 27096 ==

== ENCOUNTER 2023-12-04 10:04 | Outpatient (AMB) | payer MEDICARE, SELFPAY ==
--- NOTE | 2023-12-04 10:41 | MHC.OFFVIS ---
Vital Signs 12/04/23 10:48 Height 5 ft 3 in Weight 152 lb BMI 26.9 BP 140/88 H Blood Pressure Location Lt brachial Position Sitting Respiration 16 Pulse 85 Pulse Source Pulse Oximeter Pulse Oximetry (%) 96 Oxygen Delivery Method Room Air Intake Visit Reasons: S/p B/l Therapeutic SIJ Inj 10/31/23 Intake Note: Patient comes in for post-op appointment. Reports pain 10. Allergies Penicillins Adverse Reaction (Mild, Verified 12/04/23 10:48) Hives HPI Comments Details: Lorrie is in my office after therapeutic sacroiliac joint injection. She reports certain improvement in the level of her pain. However she reports that while the edge is taken off of her pain by the injection she feels increase in awkwardness of bilateral lower extremities, she reports that when she is in supermarket going with the cart it is easier for her to lean on a cart while walking. Neurological exam is also performed results are as below. I will send this patient for neurologist consult with diagnosis of unsteady gait and I also will send her for MRI of the lumbar spine to evaluate potential stenosis on previous images it was reported potential L3-L5 spinal canal stenosis. History of pemphigus vulgaris, history of oral steroid medication for this condition. Diagnostic sacroiliac joint injection resulted in moderate pain relief extended for several days. Patient was scheduled for therapeutic injection as above. Prior: complains on pain in the bilateral buttocks as well as pain radiation into bilateral groins. She reported that this condition started 2 years ago with severe pain in the right shoulder. Eventually her pain went widespread and now she is complaining on pain in the back and pain the right scapula. She reports that she is suffering from arthritis for 40 years. She consider her pain as a flare-up of the arthritis. She tried gabapentin which did not help her pain. [facility] Medical History (Updated 12/04/23 @ 15:04 by Kirk Baptiste MD) Osteoporosis Spinal stenosis Pemphigus Hyperlipidemia, unspecified Surgical History (Updated 10/31/23 @ 08:37 by Delia Bass) History of foot surgery Hx of repair of rotator cuff Family History Mother Age related osteoporosis Arthritis Father Diabetes Daughter Acute Crohn's disease Social History Alcohol intake: never Patient Tobacco Use Status: Never used Tobacco Current occupational status: retired Review of Systems Const All systems reviewed & are unremarkable except as noted in HPI and below ENT Reports Normal hearing present Neuro Reports Normal hearing present and Denies Abnormal speech present Physical Exam Vital Signs: Last Vital Signs Pulse 85 12/04/23 10:48 Resp 16 12/04/23 10:48 BP 140/88 H 12/04/23 10:48 Pulse Ox 96 12/04/23 10:48 Oxygen Delivery Method Room Air 12/04/23 10:48 BMI result Body Mass Index 26.9 Const General: no acute distress, well developed, alert, awake and Physically active Orientation/consciousness: patient oriented x3 Eyes General: appearance normal, both eyes and all related structures EOM: EOMs intact bilaterally Neck Neck: Yes full ROM Chest Chest palpation & inspection: normal inspection of the chest Resp Effort & Inspection: normal respiratory effort, able to speak in complete sentences, normal respiratory pattern, no audible wheezes and no cough Cardio Jugular venous distension: no JVD GI Inspection: Yes normal to inspection Back/Spine/Pelvis Other: Negative Jose Miguel test on the right and positive Jose Miguel test on the left make me think about sacroiliitis on the left. she denies pain in the groin with lateral rotation of the left or right hip. No tenderness on palpation in paraspinal spinal region of the lumbar spine. No pain aggravated by a spinal movements. Neuro General: patient oriented x3, No gait normal, No tone normal and moves all extremities Cranial nerves: Yes Normal hearing present and Yes Ability to bilaterally elevate shoulders present Speech: No Abnormal speech present Gait exam (Neuro): Shuffling gait present Motor exam (neuro): 5/5 motor strength present throughout and Pronator motor function present (On the right) Coordination: eekcvo-ti-mwtp test normal, oulq-eh-zprd test normal and Romberg test positive Romberg Test: Positive Pupils: Sluggish: bilateral Extrem General: No pedal edema Psych Speech and movement: Normal speech and movement present Affect: normal affect Attitude: cooperative Thought process: Normal thought process present Thought content: Normal thought content present Insight: Good insight present (Psych) Judgement: Good judgement present (Psych) Assessment & Plan Assessment & Plan (1) Sacroiliitis: Code(s): M46.1 - Sacroiliitis, not elsewhere classified Category: Medical (2) Sacroiliac joint pain: Code(s): M53.3 - Sacrococcygeal disorders, not elsewhere classified Category: Medical (3) Unsteady gait: Code(s): R26.81 - Unsteadiness on feet Category: Medical (4) Coordination problem: Code(s): R27.9 - Unspecified lack of coordination Category: Medical (5) Spinal stenosis: Code(s): M48.00 - Spinal stenosis, site unspecified Category: Medical Plan There is a certain element of sacroiliitis bilateral and patient felt some pain relief after therapeutic sacroiliac joint injection. However on the background of improved pain from sacroiliac joint bilaterally the patient starts to notice awkwardness with walking, tiredness with walking inability to stand straight and need to lean forward when walking for long distance. Spinal stenosis is suspected, on physical exam there are some coordination changes and some pupil changes as well. I will send the patient to the MRI of the lumbar spine, and I will send this patient for Neurology consult. I see this patient in 6 weeks and I will examine MRI. Orders: Orders MR lumbar spine wo con Today M48.00 - Spinal stenosis, site unspecified Referrals Neurology Referral R26.81 - Unsteadiness on feet, R27.9 - Unspecified lack of coordination Patient Instructions: I here by testify that I spent 38 minutes in conversation with this patient as well as planning her care and organizing this note. Coding Level of Care Code Est Pt Level 4 (17604) Diagnoses Sacroiliitis M46.1 Sacroiliac joint pain M53.3 Unsteady gait R26.81 Coordination problem R27.9 Spinal stenosis M48.00
[2023-12-04 10:48] VITALS: BP 140/88; PULSE 85; RESP 16; O2SAT 96; BMI 26.9
== END 2023-12-04 11:39 | disposition home or self-care (01) ==
PROVIDERS: PCP Family Medicine; Visit Provider Anesthesiology
DX: M46.1 Sacroiliitis, not elsewhere classified (principal); M53.3 Sacrococcygeal disorders, not elsewhere classified; R26.81 Unsteadiness on feet; R27.9 Unspecified lack of coordination; M48.00 Spinal stenosis, site unspecified
CPT/HCPCS: 99214

== ENCOUNTER → 2023-12-04 10:04 | Outpatient (BNVA) | payer MEDICARE, SELFPAY | PROVIDERS: PCP Family Medicine; Visit Provider Anesthesiology | DX: M46.1 Sacroiliitis, not elsewhere classified (principal); M53.3 Sacrococcygeal disorders, not elsewhere classified; M48.00 Spinal stenosis, site unspecified; R26.81 Unsteadiness on feet; R27.9 Unspecified lack of coordination | CPT/HCPCS: 99212 ==

== ENCOUNTER 2024-01-07 09:09 | Outpatient (AMB) | payer MEDICARE, SELFPAY ==
--- NOTE | 2024-01-07 09:20 | MHC.OFFVIS ---
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 Net Repairer Required: No Allergies Penicillins Adverse Reaction (Mild, Verified 01/07/24 09:21) Hives Medication List - Last Reconciled 01/07/24 by Sara Spring MD azelastine 2 sprays intranasal DAILY Bifidobacterium infantis (Align) 4 mg PO BEDTIME cholecalciferol (vitamin D3) 50 mcg PO DAILY melatonin 0.5 mg PO BEDTIME PRN multivitamin 1 tab PO DAILY simvastatin 40 mg PO BEDTIME trazodone 50 mg PO DAILY HPI Comments Details: 78y/o female comes her for gait and balance issues. she has h/o chronic back pain , followed up with pain management. She reports difficulty walking for about 2 years worsening since then . Prior to that she was very active all her life. Her balance is poor, has near falls. buts he is very careful. she denies neck pain now but she had neck pain 2 years ago.No tremors. she reports on and off vertigo - with nausea. Its worse with head movement. she denies headaches, double vision, speech difficulty, swallowing difficulty.she wakes up feeling dizzy. she has hearing issues. she reports increased urinary frequency.she has sleep problems, difficulty falling asleep , says she has trouble calming her mind down, she denies snoring.she has 3 arousals a night. she has excessive daytime fatigue. she denies nay numbness tingling [facility] Medical History (Updated 01/07/24 @ 10:24 by Sara Spring MD) Paroxysmal vertigo Gait abnormality Osteoporosis Spinal stenosis Pemphigus Hyperlipidemia, unspecified Surgical History History of foot surgery Hx of repair of rotator cuff Family History Mother Age related osteoporosis Arthritis Father Diabetes Daughter Acute Crohn's disease Social History Alcohol intake: never Patient Tobacco Use Status: Never used Tobacco Current occupational status: retired Physical Exam Vital Signs: Last Vital Signs Pulse 93 01/07/24 09:22 Resp 16 01/07/24 09:22 BP 142/78 H 01/07/24 09:22 Pulse Ox 96 01/07/24 09:22 Oxygen Delivery Method Room Air 01/07/24 09:22 BMI result Body Mass Index 27.2 Const General: cooperative, healthy appearing, comfortable and anxious Nutritional Appearance: average body habitus Orientation/consciousness: patient oriented x3 Eyes Pupils: Equal, round and reactive pupils present Neck Neck: Yes no meningeal signs Neuro General: patient oriented x3, tone normal, moves all extremities, no meningeal signs and no focal motor deficits Cranial nerves: Yes Facial sensation intact/muscles of mastication intact, Yes Equal, round and reactive pupils present, Yes Bilaterally intact EOM present, Yes Nystagmus not present, Yes Normal facial strength present and Yes Midline tongue present Cognition (Neuro): normal cognition Gait exam (Neuro): Other gait observations present (normal base, diffiuclty with tandem , off balance ) Motor exam (neuro): 5/5 motor strength present throughout and Normal motor muscle tone present throughout Deep tendon reflexes (DTR's): Right triceps reflex intensity grade: 1+, Left triceps reflex intensity grade: 1+, Rt Biceps (C5, C6): 1+, Left biceps reflex intensity grade: 1+, Right brachioradialis reflex intensity grade: 1+, Left brachioradialis reflex intensity grade: 1+, Right patellar reflex intensity grade: 1+ and Left patellar reflex intensity grade: 1+ Coordination: cbfobw-hy-cmgh test normal Assessment & Plan Assessment & Plan (1) Gait abnormality: Comment: multifactorial, vestibular dysfunction, spinal stenosis, deconditioning Code(s): R26.9 - Unspecified abnormalities of gait and mobility Category: Medical (2) Paroxysmal vertigo: Code(s): R42 - Dizziness and giddiness Category: Medical Plan I will evaluate her with MRI brain to r/o structural causes check Vit B 12 Vestibular therapy PT for gait Orders: Orders MR head/brain wo con Today R26.9 - Unspecified abnormalities of gait and mobility PT Evaluation and Treatment Today R42 - Dizziness and giddiness PT Evaluation and Treatment Today M48.00 - Spinal stenosis, site unspecified, R26.9 - Unspecified abnormalities of gait and mobility Vitamin B12 and Folate Today M48.00 - Spinal stenosis, site unspecified, R26.9 - Unspecified abnormalities of gait and mobility Coding Level of Care Code New Pt Level 4 (10681) Diagnoses Gait abnormality R26.9 Paroxysmal vertigo R42
[2024-01-07 09:22] VITALS: BP 142/78; PULSE 93; RESP 16; O2SAT 96; BMI 27.2
== END 2024-01-07 10:05 | disposition home or self-care (01) ==
PROVIDERS: PCP Family Medicine; Visit Provider Psychiatry & Neurology Neurology
DX: R26.9 Unspecified abnormalities of gait and mobility (principal); R42 Dizziness and giddiness
CPT/HCPCS: 99204

== ENCOUNTER → 2024-01-07 09:09 | Outpatient (BNVA) | payer MEDICARE, SELFPAY | PROVIDERS: PCP Family Medicine; Visit Provider Psychiatry & Neurology Neurology | DX: R26.9 Unspecified abnormalities of gait and mobility (principal); R42 Dizziness and giddiness | CPT/HCPCS: 36415; 82607; 82746; 99202 ==

== ENCOUNTER 2024-01-07 10:06 | Outpatient (REF) | payer MEDICARE, SELFPAY ==
[2024-01-07 19:17] LABS: Folate 17.8 ng/mL (> or = 4.0); Vitamin B12 881 pg/mL (200-900)
== END 2024-01-07 10:07 | disposition home or self-care (01) ==
LOC: HO.HKASLDS 10:06
PROVIDERS: Visit Provider Psychiatry & Neurology Neurology
DX: Z13.89 Encounter for screening for other disorder (principal)
CPT/HCPCS: 36415; 82607; 82746

== ENCOUNTER 2024-01-30 10:20 | Outpatient (REF) | payer MEDICARE, SELFPAY ==
--- NOTE | ~2024-01-30 | MR_ITS ---
MRI OF THE LUMBAR SPINE WITHOUT CONTRAST CLINICAL INFORMATION: Spinal stenosis. COMPARISON: None. TECHNIQUE: Multiplanar multisequence MR imaging of the lumbar spine obtained without contrast. FINDINGS: There are 5 nonrib-bearing lumbar-type vertebral bodies. There is grade 1 degenerative anterolisthesis of L4 on L5 and L3 on L4. Chronic upper and plate compression deformities at L3 and L4. Mild chronic vertebral body height loss at T11, T12, and L1. Small upper endplate Schmorl's node with trace surrounding bone marrow edema at L4. Bone marrow edema within the L4-L5 facets is most likely inflammatory/stress-induced. There are no acute fractures. Multilevel endplate osteophytes. Moderate disc volume loss at L5-S1. Conus terminates at the L1 level. Paraspinal muscular atrophy bilaterally. Simple left renal cyst for which no further imaging follow-up is warranted. L1-L2: Small left paracentral disc protrusion minimally indents the ventral thecal sac. No central canal stenosis and no foraminal stenosis. L2-L3: Moderate disc bulge and moderate bilateral facet arthropathy and ligamentum flavum thickening. No central canal stenosis. Disc osteophyte and facet arthropathy result in mild bilateral foraminal encroachment. L3-L4: Disc osteophyte and severe bilateral facet arthropathy and ligamentum flavum thickening results in moderate central canal stenosis and zfxq-jw-gfdwuaem bilateral foraminal encroachment without exiting nerve root compression. L4-L5: Grade 1 degenerative anterolisthesis with uncovered disc osteophyte and severe bilateral facet arthropathy and ligamentum flavum thickening resulting in severe central canal stenosis and [id number]-[id number] bilateral foraminal stenosis. Bilateral facet joint effusions at this level that can be correlated with flexion and extension views to exclude segmental instability. L5-S1: Shallow right paracentral disc protrusion results in mass effect on the traversing right S1 nerve root within the right subarticular zone and disc osteophyte and facet arthropathy result in mild to moderate right-sided foraminal stenosis with disc osteophyte resulting in mass effect on the extraforaminal right L5 nerve root. MR/MR lumbar spine wo con IMPRESSION: * At L4-L5, grade 1 degenerative anterolisthesis and advanced multifactorial degenerative changes result in severe central canal stenosis and qvne-ld-sqkhtobh bilateral foraminal stenosis. Bilateral facet joint effusions at this level that can be correlated with flexion and extension views to exclude segmental instability. Bone marrow edema within the L4-L5 facets is most likely inflammatory/stress-induced. * At L5-S1, a shallow right paracentral disc protrusion results in mass effect on the traversing right S1 nerve root within the right subarticular zone and disc osteophyte and facet arthropathy result in mild to moderate right-sided foraminal stenosis with disc osteophyte resulting in mass effect on the extraforaminal right L5 nerve root. * At L3-L4, multifactorial degenerative changes result in moderate central canal stenosis and tsdx-fu-mxlvkmbw bilateral foraminal encroachment without exiting nerve root compression. Electronically signed by: Cam Brantley MD 02/18/2024 02:21 PM EDT
== END 2024-01-30 10:21 | disposition home or self-care (01) ==
LOC: HO.MRI 10:20
PROVIDERS: PCP Family Medicine; Visit Provider Anesthesiology
DX: M48.00 Spinal stenosis, site unspecified (principal)
CPT/HCPCS: 72148

== ENCOUNTER 2024-10-18 10:24 | Outpatient (AMB) | payer MEDICARE, SELFPAY ==
--- NOTE | 2024-10-18 10:43 | MHC.OFFVIS ---
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 She requests me to repeat therapeutic sacroiliac joint injection for her. She also requests me to prescribe her again Celebrex. We discussed situation at hands. She has advanced osteoporosis. I do not believe therapeutic sacroiliac joint injections would do well in this patient's situation. In the past we discussed possibility of treating her pain with peripheral nerve stimulation of sacroiliac joint innervation. However patient is not very happy to hear that this procedure would require minor surgery to perform. As of her Celebrex she did not notice any pain improvement. She reports that Tylenol makes her pain better. I told her then that I will stop Celebrex prescriptions and I will recommend her OTC Tylenol for pain control. She was sent for evaluation by her neurologist Dr. Spring. She was sent for the MRI of the brain. The patient did not go for the MRI. Diagnostic sacroiliac joint injection resulted in moderate pain relief extended for several days. Patient was scheduled for therapeutic injection as above. Prior: complains on pain in the bilateral buttocks as well as pain radiation into bilateral groins. She reported that this condition started 2 years ago with severe pain in the right shoulder. Eventually her pain went widespread and now she is complaining on pain in the back and pain the right scapula. She reports that she is suffering from arthritis for 40 years. She consider her pain as a flare-up of the arthritis. She tried gabapentin which did not help her pain. [facility] Medical History (Updated 01/07/24 @ 10:24 by Sara Spring MD) Paroxysmal vertigo Gait abnormality Osteoporosis Spinal stenosis Pemphigus Hyperlipidemia, unspecified Surgical History History of foot surgery Hx of repair of rotator cuff Family History Mother Age related osteoporosis Arthritis Father Diabetes Daughter Acute Crohn's disease Social History Alcohol intake: never Patient Tobacco Use Status: Never used Tobacco Current occupational status: retired Review of Systems Const All systems reviewed & are unremarkable except as noted in HPI and below ENT Reports Normal hearing present Neuro Reports Normal hearing present and Denies Abnormal speech present Physical Exam Vital Signs: Last Vital Signs Pulse 88 10/18/24 10:44 BP 165/91 H 10/18/24 10:44 Pulse Ox 95 10/18/24 10:44 Oxygen Delivery Method Room Air 10/18/24 10:44 BMI result Body Mass Index 27.1 Const General: cooperative, healthy appearing and comfortable Nutritional Appearance: average body habitus Orientation/consciousness: patient oriented x3 Eyes General: appearance normal, both eyes and all related structures EOM: EOMs intact bilaterally Neck Neck: Yes full ROM Chest Chest palpation & inspection: normal inspection of the chest Resp Effort & Inspection: normal respiratory effort, able to speak in complete sentences, normal respiratory pattern, no audible wheezes and no cough Cardio Jugular venous distension: no JVD GI Inspection: Yes normal to inspection Back/Spine/Pelvis Other: Negative Jose Miguel test on the right and positive Jose Miguel test on the left make me think about sacroiliitis on the left. she denies pain in the groin with lateral rotation of the left or right hip. No tenderness on palpation in paraspinal spinal region of the lumbar spine. No pain aggravated by a spinal movements. Neuro General: patient oriented x3 Cranial nerves: Yes Normal hearing present and Yes Ability to bilaterally elevate shoulders present Speech: No Abnormal speech present Gait exam (Neuro): Shuffling gait present Motor exam (neuro): 5/5 motor strength present throughout and Pronator motor function present (On the right) Deep tendon reflexes (DTR's): Right triceps reflex intensity grade: 1+ and Left triceps reflex intensity grade: 1+ Coordination: [id number]-cx-[id number] test normal, tlkf-kx-rnov test normal and Romberg test positive Romberg Test: Positive Pupils: Sluggish: bilateral Extrem General: No pedal edema Psych Speech and movement: Normal speech and movement present Affect: normal affect Attitude: cooperative Thought process: Normal thought process present Thought content: Normal thought content present Insight: Good insight present (Psych) Judgement: Good judgement present (Psych) Assessment & Plan Assessment & Plan (1) Sacroiliitis: Code(s): M46.1 - Sacroiliitis, not elsewhere classified Category: Medical (2) Sacroiliac joint pain: Code(s): M53.3 - Sacrococcygeal disorders, not elsewhere classified Category: Medical (3) Unsteady gait: Code(s): R26.81 - Unsteadiness on feet Category: Medical (4) Coordination problem: Code(s): R27.9 - Unspecified lack of coordination Category: Medical (5) Spinal stenosis: Code(s): M48.00 - Spinal stenosis, site unspecified Category: Medical Plan There is a certain element of sacroiliitis bilateral and patient felt some pain relief after therapeutic sacroiliac joint injection. Last time she received therapeutic sacroiliac joint injection with good pain relief however it resulted with some neurological signs of difficulty walking and discoordination. The patient was sent to the neurologist. Unfortunately she did not go for brain MRI. At this time we may suspect that discoordination was related possibly to steroid injections. On top of that patient has advanced osteoporosis. Repeat of the sacroiliac joint steroid injection would be not recommended in the situation. We discussed situation at hands and I explained to the patient possibility of treating her pain with PNS cure on X. The patient is not very eager to go for the procedure however brochure was given to her anyway. As of her Celebrex I will not be renewing this medication, this medication did not help her pain. I recommend her to take Tylenol as needed to help her pain. I see this patient in 6 weeks and I will examine MRI. Coding Level of Care Code Est Pt Level 3 (01651) Diagnoses Sacroiliitis M46.1 Sacroiliac joint pain M53.3 Unsteady gait R26.81 Coordination problem R27.9 Spinal stenosis M48.00
[2024-10-18 10:44] VITALS: BP 165/91; PULSE 88; O2SAT 95; BMI 27.1
== END 2024-10-18 11:13 | disposition home or self-care (01) ==
LOC: HO.PMC 10:24
PROVIDERS: PCP Family Medicine; Visit Provider Anesthesiology
DX: M46.1 Sacroiliitis, not elsewhere classified (principal); M53.3 Sacrococcygeal disorders, not elsewhere classified; R26.81 Unsteadiness on feet; R27.9 Unspecified lack of coordination; M48.00 Spinal stenosis, site unspecified
CPT/HCPCS: 99213

== ENCOUNTER → 2024-10-18 10:24 | Outpatient (BNVA) | payer MEDICARE, SELFPAY | PROVIDERS: PCP Family Medicine; Visit Provider Anesthesiology | DX: M53.3 Sacrococcygeal disorders, not elsewhere classified (principal); M46.1 Sacroiliitis, not elsewhere classified; R26.81 Unsteadiness on feet; R27.9 Unspecified lack of coordination; M48.00 Spinal stenosis, site unspecified | CPT/HCPCS: 99212 ==